=== PATIENT | female | born 1930 | race Caucasian/White ===

== ENCOUNTER 2022-09-21 13:50 | Emergency (ER) | payer MEDICARE, OTHER ==
[2022-09-21] MEDS ORDERED: Sodium Chloride 0.9% 1,000 ML IV ONE (13:54)
[2022-09-21 14:17] LABS: BASOPHILS ABSOLUTE AUTO 0.1 x10-3/uL (0.0-0.1); BASOPHILS PERCENT AUTO 0.4 % (0.2-1.5); EOSINOPHILS PERCENT AUTO 0.4 % (0.6-8.1); HEMATOCRIT 41.6 % (34.2-48.2); HEMOGLOBIN 13.9 g/dL (11.4-15.5); LYMPHOCYTES ABSOLUTE AUTO 1.7 x10-3/uL (1.0-4.4); LYMPHOCYTES PERCENT AUTO 12.6 % (18.4-52.1); MEAN CORPUSCULAR HEMOGLOBIN 30.6 pg (23.9-33.9); MEAN CORPUSCULAR HGB CONC 33.5 g/dL (31.9-34.8); MEAN CORPUSCULAR VOLUME 91.3 fL (76.7-100.5); MONOCYTES ABSOLUTE AUTO 1.2 x10-3/uL (0.3-1.0); MONOCYTES PERCENT AUTO 8.6 % (4.4-15.7); NEUTROPHILS ABSOLUTE AUTO 10.5 x10-3/uL (1.5-6.3); PLATELET COUNT,PLT 303 x10(3)uL (151-488); RED BLOOD CELL COUNT 4.55 x10(6)uL (3.60-5.20); RED CELL DISTRIBUTION WIDTH 14.8 % (12.3-16.5); WHITE BLOOD CELL COUNT,WBC 13.5 x10-3/uL (3.0-10.3)
[2022-09-21 14:24] LABS: BILIRUBIN,URINE NEGATIVE (NEGATIVE); GLUCOSE,URINE NORMAL (NORMAL); KETONES,URINE NEGATIVE (NEGATIVE); LEUKOCYTE ESTERASE,URINE LARGE (NEGATIVE); NITRITE,URINE POSITIVE (NEGATIVE); OCCULT BLOOD,URINE NEGATIVE (NEGATIVE); PROTEIN,URINE NEGATIVE (NEGATIVE); UROBILINOGEN,URINE NORMAL (NEGATIVE)
[2022-09-21 14:24] LABS: BLOOD UREA NITROGEN,BUN 24 mg/dL (7-18); BUN/CREATININE RATIO 17.1 (9-20); CALCIUM 9.3 mg/dL (8.6-10.2); CARBON DIOXIDE,CO2 30 mmol/L (21-32); CHLORIDE,CL 98 mmol/L (100-110); CREATININE 1.4 mg/dL (0.55-1.02); ESTIMATED GFR 36 mL/min (>60); GLUCOSE RANDOM 152 mg/dL (80-116); POTASSIUM,K 4.5 mmol/L (3.5-5.3); SODIUM,NA 136 mmol/L (135-145)
[2022-09-21 14:25] LABS: APPEARANCE,URINE TURBID (CLEAR); COLOR,URINE YELLOW (YELLOW)
[2022-09-21 14:26] LABS: WBC,URINE PACKED (0-5)
[2022-09-21 14:30] LABS: A/G RATIO 0.7; ALANINE AMINOTRANSFERASE,ALT 22 U/L (12-36); ALBUMIN 3.1 g/dL (2.9-4.5); ALKALINE PHOSPHATASE 78 IU/L (56-112); ASPARTATE AMNIOTRANSFERASE,AST 22 IU/L (5-25); BILIRUBIN TOTAL 0.6 mg/dL (0.1-1.3); PROTEIN TOTAL,TP 7.5 g/dL (6.0-8.0)
[2022-09-21 14:37] LABS: C-REACTIVE PROTEIN 3.78 mg/dL (<0.33); TROPONIN I 145.2 pg/mL (4.0-60.3)
[2022-09-21] MEDS ORDERED: Furosemide 20 MG/2 ML VIAL IVPUSH ONE (16:14)
[2022-09-21] MEDS ORDERED: cefTRIAXone 1 GM Vial IVPUSH SCH (16:15)
[2022-09-21] MEDS ORDERED: methylPREDNISolone Sod Succ 125 MG in Sodium Chloride 0.9% 100 ML IV ONE (16:21)
[2022-09-21] MEDS ORDERED: methylPREDNISolone Sodium Succinate 125 MG/2 ML SDV IVPUSH ONE (16:30)
== END 2022-09-21 19:40 ==
LOC: FB.ED 13:50
DX: E86.0 Dehydration (principal); E87.20 Acidosis, unspecified; D72.829 Elevated white blood cell count, unspecified; N12 Tubulo-interstitial nephritis, not specified as acute or chronic; R09.02 Hypoxemia; J81.1 Chronic pulmonary edema; R79.1 Abnormal coagulation profile; N18.9 Chronic kidney disease, unspecified; N17.9 Acute kidney failure, unspecified; E27.8 Other specified disorders of adrenal gland; R94.31 Abnormal electrocardiogram [ECG] [EKG]; Z88.8 Allergy status to other drugs, medicaments and biological substances; Z88.1 Allergy status to other antibiotic agents
CPT/HCPCS: 36415; 71046; 80053; 81001; 83605; 83735; 83880; 84443; 84484; 85025; 86140; 87040; 87086; 87088; 87186; 93005; 96361; 96374; 96375; 99285; J0696; J1940; J2930; J7030